=== PATIENT | male | born 1935 | race Caucasian/White ===

== ENCOUNTER 2018-01-07 12:39 | Inpatient (IN) | payer SELFPAY ==
[~2018-01-07] VITALS: Ht 175.3 cm; Wt 77.8 kg
--- NOTE | 2018-01-07 13:17 | RAD ---
CT head without intravenous contrast History: Acute neurological deficit, code stroke. Comparison: None. Technique: Axial images are obtained of the head from the skull base through the vertex without IV contrast. Exposure: One or more of the following individualized dose reduction techniques were utilized for this examination: 1. Automated exposure control 2. Adjustment of the mA and/or kV according to patient size 3. Use of iterative reconstruction technique Findings: The ventricles are appropriate in size, shape, and location for the patient's age. No obvious intracranial mass, mass-effect, midline shift, or hemorrhage is identified. Basilar cisterns are patent. Small old right posterior cerebellar infarction is seen. Small old bilateral thalamic lacunar infarctions are seen. Somewhat amorphous, small focus of low-attenuation involving the right subinsular region and right frontal white matter is seen, could represent subacute versus old white matter infarction. No obvious acute ischemic cortical infarction is identified. Moderate poorly defined white matter low-attenuation is seen, probably from chronic microvascular ischemic disease. Bone windows demonstrate no acute calvarial abnormality. The visualized paranasal sinuses appear clear. Impression: 1. Somewhat amorphous focus of low-attenuation is seen involving the right subinsular white matter and deep right frontal white matter, compatible with white matter infarctions, could be subacute versus old. 2. No obvious acute cortical infarction is identified. 3. Old bilateral basal ganglia lacunar infarctions. 4. Small old right posterior cerebellar infarction. 5. Moderate nonspecific white matter low-attenuation is seen, probably from chronic microvascular ischemic disease. Results were phoned to referring emergency department physician, Dr. Turcios, at 1313 hours. Electronically signed by: Donavan Vernon MD (01/07/2018 1:13 PM) [place] [id number]
--- NOTE | 2018-01-07 13:28 | EKG ---
[address] [address] Test Date: 2018-01-07 Test Time: 13:24:05 Pat Name: DELORES LICEA Department: Room: Gender: M On Site Property Manager: SHAE : 1935 Requested By: FAB SANTIAGO Order Number: [id number] Reading MD: Measurements Intervals [place] Rate: 61 P: 38 MD: 172 QRS: -20 QRSD: 96 T: 21 QT: 430 QTc: 434 Interpretive Statements SINUS RHYTHM LEFTWARD AXIS R-S TRANSITION ZONE IN V LEADS DISPLACED TO THE LEFT QRS(T) CONTOUR ABNORMALITY CONSIDER ANTEROSEPTAL MYOCARDIAL DAMAGE POSSIBLY ABNORMAL ECG RI6.01 No previous ECG available for comparison
[2018-01-07 13:30] LABS: BASO # 0.1 x10^3/uL (0.0-0.2); BASO % 1 % (0-3); EOS # 0.3 x10^3/uL (0.0-0.7); EOS % 3 % (0-3); HEMATOCRIT 39.5 % (39.0-53.0); HEMOGLOBIN 13.4 g/dL (13.0-17.5); LYMPH # 2.4 x10^3/uL (1.0-4.8); LYMPH % 20 % (24-48); MEAN CORPUSCULAR HEMOGLOBIN 30 pg (25-35); MEAN CORPUSCULAR HGB CONC 34 g/dL (31-37); MEAN CORPUSCULAR VOLUME 88 fL (79-100); MONO # 1.2 x10^3/uL (0.0-1.1); MONO % 10 % (0-9); NEUT # 7.8 x10^3uL (1.8-7.7); NEUT % 67 % (31-73); PLATELET COUNT 212 x10^3/uL (140-400); RED BLOOD COUNT 4.48 x10^6/uL (4.30-5.70); RED CELL DISTRIBUTION WIDTH 13.7 % (11.5-14.5); WHITE BLOOD COUNT 11.8 x10^3/uL (4.0-11.0)
--- NOTE | 2018-01-07 13:31 | RAD ---
EXAM: Chest, single view. HISTORY: Mental status changes. COMPARISON: None. FINDINGS: A frontal view the chest is obtained. There is lower lobe atelectasis. There is no consolidation, effusion or pneumothorax. There is cardiomegaly. IMPRESSION: Cardiomegaly and lower lobe atelectasis. Electronically signed by: Mae Salazar MD (01/07/2018 1:28 PM) [id number]
[2018-01-07 14:09] LABS: ALBUMIN 3.5 g/dL (3.4-5.0); ALBUMIN/GLOBULIN RATIO 1.1 (1.0-1.7); CALCIUM 9.1 mg/dL (8.5-10.1); CREATININE 1.3 mg/dL (0.7-1.3); GFR 53.1; TOTAL BILIRUBIN 0.5 mg/dL (0.2-1.0); TOTAL PROTEIN 6.8 g/dL (6.4-8.2)
--- NOTE | 2018-01-07 14:35 | PHYS DOC ---
Past History Past Medical History: CVA, High Cholesterol, Hypertension Past Surgical History: No Surgical History Alcohol Use: None Drug Use: None Adult General Chief Complaint Chief Complaint: NEURO SYMPTOMS/DEFICITS HPI HPI 82 year old male patient with history of intracranial bleeding one month ago without remaining neuro deficit brought in by his caregiver because of sudden onset of facial droop that started about 30 minutes prior to arrival to ER at 1210 without other symptoms. Patient denies headache, chest pain, shortness of breath, focal neuro deficit, nausea and vomiting. Patient currently taking baby aspirin. Review of Systems Review of Systems Constitutional: Denies fever or chills [] Eyes: Denies change in visual acuity, redness, or eye pain [] HENT: Denies nasal congestion or sore throat [] Respiratory: Denies cough or shortness of breath [] Cardiovascular: No additional information not addressed in HPI [] GI: Denies abdominal pain, nausea, vomiting, bloody stools or diarrhea [] : Denies dysuria or hematuria [] Musculoskeletal: Denies back pain or joint pain [] Integument: Denies rash or skin lesions [] Neurologic: Denies headache, reports focal weakness , denies sensory changes [] Endocrine: Denies polyuria or polydipsia [] All other systems were reviewed and found to be within normal limits, except as documented in this note. Current Medications Current Medications Current Medications Medications (Trade) Dose Ordered Sig/Renae Start Time Stop Time Status Last Admin Dose Admin Potassium Chloride (KCl Oral Soln) 40 meq 1X ONCE 01/07/18 14:15 01/07/18 14:16 UNV Physical Exam Physical Exam Constitutional: Well developed, well nourished, no acute distress, non-toxic appearance. [] HENT: Normocephalic, atraumatic, bilateral external ears normal, oropharynx moist, no oral exudates, nose normal. [] Eyes: PERRLA, EOMI, conjunctiva normal, no discharge. [] Neck: Normal range of motion, no tenderness, supple, no stridor. [] Cardiovascular:Heart rate regular rhythm, no murmur [] Lungs & Thorax: Bilateral breath sounds clear to auscultation [] Abdomen: Bowel sounds normal, soft, no tenderness, no masses, no pulsatile masses. [] Skin: Warm, dry, no erythema, no rash. [] Back: No tenderness, no CVA tenderness. [] Extremities: No tenderness, no cyanosis, no clubbing, ROM intact, no edema. [] Neurologic: Alert and oriented X 3, very mild left facial droop without change of smile, normal sensory function, no focal deficits noted. NIHSS-1[] Psychologic: Affect normal, judgement normal, mood normal. [] Current Patient Data Vital Signs Vital Signs Date Time Temp Pulse Resp B/P (MAP) Pulse Ox O2 Delivery O2 Flow Rate FiO2 01/07/18 12:40 98.3 67 16 95 Room Air Lab Results Laboratory Tests Test 01/07/18 13:10 01/07/18 13:14 01/07/18 13:41 White Blood Count 11.8 x10^3/uL (4.0-11.0) H Red Blood Count 4.48 x10^6/uL (4.30-5.70) Hemoglobin 13.4 g/dL (13.0-17.5) Hematocrit 39.5 % (39.0-53.0) Mean Corpuscular Volume 88 fL (79-100) Mean Corpuscular Hemoglobin 30 pg (25-35) Mean Corpuscular Hemoglobin Concent 34 g/dL (31-37) Red Cell Distribution Width 13.7 % (11.5-14.5) Platelet Count 212 x10^3/uL (140-400) Neutrophils (%) (Auto) 67 % (31-73) Lymphocytes (%) (Auto) 20 % (24-48) L Monocytes (%) (Auto) 10 % (0-9) H Eosinophils (%) (Auto) 3 % (0-3) Basophils (%) (Auto) 1 % (0-3) Neutrophils # (Auto) 7.8 x10^3uL (1.8-7.7) H Lymphocytes # (Auto) 2.4 x10^3/uL (1.0-4.8) Monocytes # (Auto) 1.2 x10^3/uL (0.0-1.1) H Eosinophils # (Auto) 0.3 x10^3/uL (0.0-0.7) Basophils # (Auto) 0.1 x10^3/uL (0.0-0.2) Prothrombin Time 10.3 SEC (9.4-11.4) Prothrombin Time INR 1.0 (0.9-1.1) Glucose (Fingerstick) 90 mg/dL (70-99) Sodium Level 139 mmol/L (136-145) Potassium Level 3.0 mmol/L (3.5-5.1) L Chloride Level 102 mmol/L (98-107) Carbon Dioxide Level 32 mmol/L (21-32) Anion Gap 5 (6-14) L Blood Urea Nitrogen 26 mg/dL (8-26) Creatinine 1.3 mg/dL (0.7-1.3) Estimated GFR (Cockcroft-Gault) 53.1 BUN/Creatinine Ratio 20 (6-20) Glucose Level 103 mg/dL (70-99) H Calcium Level 9.1 mg/dL (8.5-10.1) Total Bilirubin 0.5 mg/dL (0.2-1.0) Aspartate Amino Transferase (AST) 15 U/L (15-37) Alanine Aminotransferase (ALT) 21 U/L (16-63) Alkaline Phosphatase 124 U/L (46-116) H Troponin I Quantitative < 0.017 ng/mL (0-0.055) Total Protein 6.8 g/dL (6.4-8.2) Albumin 3.5 g/dL (3.4-5.0) Albumin/Globulin Ratio 1.1 (1.0-1.7) EKG EKG EKG interpreted by me. Patient 1324 showed normal sinus rhythm at rate of 61, left fourth axis, poor R-wave progress in anteroseptal leads, no acute ST and T- wave abnormalities[] Radiology/Procedures Radiology/Procedures [] [address] [address] IMAGING REPORT Signed PATIENT: DELORES LICEA ACCOUNT: [id number] : 1935 LOCATION: ER AGE: 82 SEX: M EXAM STATUS: REG ER ORD. PHYSICIAN: FAB SANTIAGO MD REASON: acute neurodeficit PROCEDURE: CHEST AP ONLY EXAM: Chest, single view. HISTORY: Mental status changes. COMPARISON: None. FINDINGS: A frontal view the chest is obtained. There is lower lobe atelectasis. There is no consolidation, effusion or pneumothorax. There is cardiomegaly. IMPRESSION: Cardiomegaly and lower lobe atelectasis. Electronically signed by: Mae Isaac MD (01/07/2018 1:28 PM) [facility] DICTATED AND SIGNED BY: MAE ISAAC MD DATE: 01/07/18 1957 CC: FAB SANTIAGO MD; PA SORIANO MD ~ [place] [id number] IMAGING REPORT Signed PATIENT: DELORES LICEA ACCOUNT: [id number] : 1935 LOCATION: ER AGE: 82 SEX: M EXAM STATUS: REG ER ORD. PHYSICIAN: FAB SANTIGAO MD REASON: acute neuro deficits PROCEDURE: CT CODE STROKE HEAD WO CT head without intravenous contrast History: Acute neurological deficit, code stroke. Comparison: None. Technique: Axial images are obtained of the head from the skull base through the vertex without IV contrast. Exposure: One or more of the following individualized dose reduction techniques were utilized for this examination: 1. Automated exposure control 2. Adjustment of the mA and/or kV according to patient size 3. Use of iterative reconstruction technique Findings: The ventricles are appropriate in size, shape, and location for the patient's age. No obvious intracranial mass, mass-effect, midline shift, or hemorrhage is identified. Basilar cisterns are patent. Small old right posterior cerebellar infarction is seen. Small old bilateral thalamic lacunar infarctions are seen. Somewhat amorphous, small focus of low-attenuation involving the right subinsular region and right frontal white matter is seen, could represent subacute versus old white matter infarction. No obvious acute ischemic cortical infarction is identified. Moderate poorly defined white matter low-attenuation is seen, probably from chronic microvascular ischemic disease. Bone windows demonstrate no acute calvarial abnormality. The visualized paranasal sinuses appear clear. Impression: 1. Somewhat amorphous focus of low-attenuation is seen involving the right subinsular white matter and deep right frontal white matter, compatible with white matter infarctions, could be subacute versus old. 2. No obvious acute cortical infarction is identified. 3. Old bilateral basal ganglia lacunar infarctions. 4. Small old right posterior cerebellar infarction. 5. Moderate nonspecific white matter low-attenuation is seen, probably from chronic microvascular ischemic disease. Results were phoned to referring emergency department physician, Dr. Santiago, at 1313 hours. Electronically signed by: Donavan Barksdale MD (01/07/2018 1:13 PM) [facility] DICTATED AND SIGNED BY: DONAVAN BARKSDALE MD DATE: 01/07/18 1306 CC: FAB SANTIAGO MD; PA SORIANO MD ~ Course & Med Decision Making Course & Med Decision Making Pertinent Labs and Imaging studies reviewed. (See chart for details) Evaluation of patient in ER showed 82-year-old patient with history of recent intracranial bleed brought in because of sudden onset of facial droop. Patient had NIHSS-1 was not a candidate for TPA because of history of recent intracranial bleeding and also very low and NIHSS. Patient had potassium of 3.0 and treated with oral potassium. Plan to admit patient for observation. Dr. Talamantes informed at 1450 and agreed with plan of care. Dragon Disclaimer Dragon Disclaimer This electronic medical record was generated, in whole or in part, using a voice recognition dictation system. Departure Departure: Impression: Primary Impression: Acute focal neurological deficit Additional Impression: Hypokalemia Disposition: ADMITTED INPATIENT (At 1430) Admitting Physician: Yelena Talamantes Condition: STABLE Referrals: PA SORIANO MD (PCP) Problem Qualifiers FAB SANTIAGO MD January 07, 2018 14:34
[2018-01-07 14:42] LABS: BACTERIA,URINE MOD /HPF (0-FEW); BILIRUBIN,URINE NEG (NEG); CLARITY,URINE HAZY; COLOR,URINE YELLOW; GLUCOSE,URINE NEG (NEG); NITRITE,URINE NEG (NEG); SQUAMOUS EPITHELIAL CELL,UR FEW /LPF; UROBILINOGEN,URINE 0.2 mg/dL (0.2 mg/dL)
[2018-01-07] MEDS ORDERED: POTASSIUM CHLORIDE 20 MEQ/15 ML ORAL LIQUID. PO ONE (14:45)
[2018-01-07] MEDS ORDERED: cefTRIAXone IV Push 1 GM VIAL. IVP ONE (16:00)
[2018-01-07 18:06] VITALS: BP 158/72
[2018-01-07] MEDS ORDERED: POTA10TA10 PO (18:21)
[2018-01-07] MEDS ORDERED: AMLO10TA4 PO (18:21)
[2018-01-07] MEDS ORDERED: ATOR10TA PO (18:21)
[2018-01-07] MEDS ORDERED: CARV12.5 PO (18:21)
[2018-01-07] MEDS ORDERED: MELA3TAB2 PO (18:21)
[2018-01-07] MEDS ORDERED: CHLO25TA PO (18:21)
[2018-01-07] MEDS ORDERED: ASPI-630 PO (18:21)
[2018-01-07] MEDS ORDERED: HYDR50TA6 PO (18:21)
--- NOTE | 2018-01-07 18:43 | HP ---
ADMIT DATE: 01/07/2018 HISTORY OF PRESENT ILLNESS: This is an 82-year-old male patient who was brought to the Emergency Room by his caregiver because of sudden onset of facial droop that started about 30 minutes prior to arrival to the Emergency Room without other symptoms. The patient denied any headache, chest pain, denied any dizziness, denied any tingling, numbness or focal deficit. Denied any vomiting. The patient is currently taking a baby aspirin. He was extensively evaluated in the Emergency Room and has had a CT scan of the head, which showed that there is somewhat amorphous focus of low attenuation is seen involving the right insular white matter and deep right frontal white matter compatible with white matter infarction, could be subacute versus old. There is no obvious acute cortical infarction identified. Old bilateral basal ganglia lacunar infarction and small old right posterior cerebellar infarction. He has also moderate nonspecific white matter low attenuation seen, probably from chronic microvascular ischemic disease. The patient was admitted for further evaluation by Dr. Astorga. PAST MEDICAL HISTORY: Significant for hypertension, hyperlipidemia. He also has apparently a recent hemorrhagic stroke for which he was seen initially at [facility] and eventually was sent to [facility] at the [place]. We do not have any further details about it and we probably have to get the medical records from these 2 hospitals. PAST SURGICAL HISTORY: Significant for right foot fracture, status post open reduction and internal fixation, bilateral cataract extraction. ALLERGIES: He has no known drug allergies. MEDICATIONS: We do not have the exact list of the medications, we will contact the Pharmacy to get all his medications. FAMILY HISTORY: Apparently is unremarkable. SOCIAL HISTORY: He apparently lives alone with caregiver keeping an eye on him. He has 3 or 4 daughters and 1 son, all live around. He does not smoke, drink alcohol or use any recreational drugs. PHYSICAL EXAMINATION: GENERAL: On arrival to the Emergency Room, he looked well and was clearly in no apparent respiratory distress, pale, but no jaundice, cyanosis, or thyromegaly. No jugular venous distension. No lower limb edema. VITAL SIGNS: His heart rate was 67, temperature was 98.3, respiratory rate was 16, and oxygen saturation was 95% on room air. HEAD, EYES, EARS, NOSE AND THROAT: Showed normocephalic, atraumatic. NECK: Supple. HEART: Showed normal first and second sounds. No gallop, rub or murmur. CHEST: Clear to auscultation. No crepitation or rhonchi. ABDOMEN: Distended, soft, nontender. No guarding or rigidity. No organomegaly. All hernial orifices are intact. Bowel sounds normal. NEUROLOGIC: He is very hard of hearing. Otherwise, all cranial nerves are intact except that he has mild facial upper motor neuron right-sided facial weakness. The strength to both upper and lower extremities is the same. He is able to ambulate without assistance or assistive devices. LABORATORY DATA: While in the Emergency Room, he had lab work done, which showed CBC with a white cell count of 11,800, hemoglobin 13.4, hematocrit 39.5, MCV 88 and platelet count of 212,000. His chemistry showed a serum sodium of 139, potassium 3, chloride 102, bicarbonate 32, anion gap of 5, BUN 26, creatinine 1.3, estimated GFR was 53 mL per minute. His glucose was 103, calcium was 9.1. Total bilirubin, AST, ALT, alkaline phosphatase were normal. His total protein was 6.8, albumin 3.5. His prothrombin time was 10.3, INR of 1. His urinalysis was essentially unremarkable. Urine was yellow, hazy with a pH of 8.5, specific gravity of 1.015. The urine was negative for nitrite. There was small leukocyte esterase, 1-2 RBCs, 5-10 WBCs, moderate amount of bacteria. IMAGING DATA: His chest x-ray showed cardiomegaly and lower lobe atelectasis and a CT scan showed somewhat amorphous focus of low attenuation is seen involving the right subinsular white matter and deep right frontal white matter compatible with white matter infarction that could be subacute versus old. He has no obvious acute cortical infarction identified. Old bilateral basal ganglia lacunar infarcts and small old right posterior cerebellar infarction, moderate nonspecific white matter low attenuation is seen, probably from chronic microvascular ischemic disease. ASSESSMENT AND PLAN: The patient will be admitted. We will arrange for him to have lipid profile and bilateral carotid Doppler ultrasound. We will consult Dr. Astorga and decide on further management accordingly. We will also correct his hypokalemia and if all is well, the patient can be discharged home. DELL ABARCA MD DR: ALEXI/violeta JOB#: [id number] / [id number]
[2018-01-07] MEDS ORDERED: TAMS0.4C97 PO (19:35)
[2018-01-07 19:42] VITALS: BP 133/79
[2018-01-07] MEDS ORDERED: HYDR100T24 PO (20:14)
[2018-01-07] MEDS ORDERED: MELATONIN 3 MG TABLET PO SCH (21:00)
[2018-01-07 22:08] VITALS: BP 118/61
[2018-01-08] MEDS ORDERED: hydroCHLOROthiazide 25 MG TABLET PO SCH (07:00)
[2018-01-08 07:06] LABS: CALCIUM 9.1 mg/dL (8.5-10.1); CREATININE 1.4 mg/dL (0.7-1.3); GFR 48.8; POTASSIUM 3.4 mmol/L (3.5-5.1)
[2018-01-08 07:51] VITALS: BP 172/85
[2018-01-08] MEDS ORDERED: CARVEDILOL 12.5 MG TABLET PO SCH (08:00)
--- NOTE | 2018-01-08 08:37 | CONS ---
DATE OF CONSULTATION: 01/07/2018 NEUROLOGICAL CONSULTATION REFERRING PHYSICIAN: Dr. Talamantes. HISTORY OF PRESENT ILLNESS: This is an 82-year-old male who was admitted through Emergency Room after he presented with a chief complaint of acute onset of left facial drooping began at approximately 30 minutes prior to admission to the Emergency Room. The patient stated he suffered from "hemorrhagic infarct" approximately a month ago and he was extensively worked up at [facility], but the medical record is not available at this time. The patient denies any new neurological complaints of headaches, visual disturbances, weakness, numbness, paresthesia, chest pain, shortness of breath or palpitation, dysarthria, dysphagia or dizziness. Initial nonenhanced head CT scan consistent with a possible subacute old right frontal lobe infarct in the deep white matter along with right insular white matter, old bilateral basal ganglia lacunar infarcts and small old right posterior cerebellar infarct. PAST MEDICAL HISTORY: Significant for hemorrhagic infarct as described above and had extensive stroke workup at [facility], history of hypertension, hyperlipidemia, benign prostate hypertrophy. PAST SURGICAL HISTORY: Significant for bilateral cataract extraction, status post right foot fracture, required surgery. SOCIAL HISTORY: The patient is single. He lives alone with a caregiver. He has 5 childrens. He denies smoking, alcohol drinking or any illicit drug use. CURRENT HOME MEDICATIONS: Amlodipine 10 mg daily, aspirin 81 mg daily, Lipitor 10 mg daily, chlorthalidone 25 mg daily, hydralazine 100 mg daily. Melatonin 3 mg nightly, tamsulosin 0.4 mg daily. ALLERGIES: No known drug allergies. REVIEW OF SYSTEMS: A 10-point review of system was performed as mentioned above in history of present illness. PHYSICAL EXAMINATION: GENERAL: Well-developed, well-nourished white male, not in acute distress. He weighs 171 pounds. VITAL SIGNS: Blood pressure 158/72, respiratory rate 20, pulse 71 regular, temperature 98.1, oxygen saturation 95% on room air. HEENT: Normocephalic, atraumatic, otherwise unremarkable. NECK: Supple. Negative for carotid bruit, lymphadenopathy, thyromegaly or JVD. LUNGS: Clear to A and P. CARDIOVASCULAR: Regular rate rhythm. Normal S1, S2. There is no S3, S4 or murmur. ABDOMEN: Soft. Bowel sounds positive. EXTREMITIES: Negative for cyanosis, clubbing or pitting edema. NEUROLOGIC: 1. Mental status: The patient is alert and oriented x 3. Speech is fluent. There is no language dysfunction. Memory, judgment, and abstract thinking are normal. The patient denies hallucination or delusion. 2. Cranial nerves: Visual acevedo are full. The pupils are reactive to light and accommodation. The extraocular movements are intact. There is no nystagmus. There is a mild left facial asymmetry. There is no facial sensory deficit. Hearing is diminished bilaterally. The palate is elevated symmetrically. Sternocleidomastoid muscles are powerful bilaterally. The patient shrugs his shoulders symmetrically, protrudes his tongue in the midline without fasciculation or atrophy. 3. Motor: No focal muscle bulk was seen. The tone is normal. The strength is 5/5 throughout. 4. Sensory: Normal pinprick, light touch, vibratory and position senses. 5. Deep tendon reflexes are symmetric and active without pathologic responses. 6. Gait and coordination are normal. DIAGNOSTIC DATA: Initial nonenhanced head CT scan as mentioned above in history of present illness consistent with a possible subacute right frontal infarct along with a small old right cerebellar infarct and white matter small vessel ischemic disease. Chest x-ray revealed cardiomegaly with lower lobe atelectasis. LABORATORY DATA: CBC revealed white blood cells of 11.8, hemoglobin 13.4, hematocrit 39.5, platelet count 212,000. Chemistry revealed sodium of 139, potassium 3, chloride 102, CO2 32. BUN 26, creatinine 1.3, glucose 103, calcium 9.1. Troponin level is normal. Liver enzymes are normal, but alkaline phosphatase is elevated. Urinalysis shows small urinary leukocyte esterase with white blood cells of 5-10 and moderate bacteria. IMPRESSION: 1. Possible new left facial asymmetry with abnormal head CT scan as described above. Subacute infarct would not entirely ruled out. 2. Status post small hemorrhagic infarct. 3. Multiple medical problems include hypertension, hyperlipidemia, bilateral hearing loss, benign prostate hypertrophy, and hypokalemia. RECOMMENDATIONS: 1. The patient has been scheduled to have bilateral carotid Doppler study. 2. Request of recent medical record from [facility]. 3. Correct the underlying hypokalemia. 4. Continue with current care initiated by Dr. Talamantes. M Juan LUGO MD DR: Lissy JOB#: [id number] / [id number]
[2018-01-08] MEDS ORDERED: ASPIRIN 81 MG TAB.CHEW PO SCH (09:00)
[2018-01-08] MEDS ORDERED: amLODIPine BESYLATE 10 MG TABLET PO SCH (09:00)
[2018-01-08] MEDS ORDERED: POTASSIUM CHLORIDE 20 MEQ TABLET.ER. PO SCH (09:00)
[2018-01-08] MEDS ORDERED: TAMSULOSIN 0.4 MG CAP.ER.24H. PO SCH (09:00)
[2018-01-08] MEDS ORDERED: CHLORTHALIDONE 25 MG TABLET PO SCH (09:00)
[2018-01-08] MEDS ORDERED: DOCU100C28 PO (10:03)
[2018-01-08] MEDS ORDERED: SENN1TAB7 PO (10:03)
[2018-01-08] MEDS ORDERED: MAGN2400 PO (10:03)
[2018-01-08] MEDS ORDERED: POLY17PO5 PO (10:03)
[2018-01-08 11:05] VITALS: BP 127/75
--- NOTE | 2018-01-08 12:00 | PN ---
DATE: 01/08/2018 SUBJECTIVE: The patient denies any new medical or neurological complaints. He has had resting tremor of the right hand, which usually aggravated by tiredness throughout the day. He denies headaches, visual disturbances, nausea, vomiting, chest pain, shortness of breath or palpitation, dysarthria, dysphagia, weakness or paresthesia. OBJECTIVE: GENERAL: Well-developed, well-nourished male, not in acute distress. VITAL SIGNS: Blood pressure 172/85, respiratory rate 18, pulse is 58, temperature is 97.7 and oxygen saturation 95% on room air. HEENT: Normocephalic, atraumatic, otherwise unremarkable. NECK: Supple. Negative for carotid bruit or lymphadenopathy, JVD or thyromegaly. LUNGS: Clear to A and P. CARDIOVASCULAR: Regular rate and rhythm, normal S1, S2. There is no S3, S4 or murmur. ABDOMEN: Soft. Bowel sounds positive. EXTREMITIES: Negative for cyanosis, clubbing or pitting edema. NEUROLOGICAL EXAM: Mental Status: The patient is alert and oriented x 3. Speech is fluent. There is no language dysfunction. Memory, judgment, and abstract thinking are normal. The patient denies hallucination or delusion. Cranial nerves are grossly intact except for bilateral hearing loss. There is no obvious facial asymmetry bilaterally. Motor examination: No focal muscle bulk was seen. The strength was 5/5 throughout, probably slight rigidity in the right lower extremity. Intermittent resting tremor of the right hand was also noted. Sensory examination: Normal pinprick, light touch, vibratory and position senses. Deep tendon reflexes are symmetric and active without pathology responses. Gait and coordination are normal. LABORATORY DATA: Chemistry revealed sodium 142, potassium 3.4, chloride 104, CO2 of 31, BUN 30, creatinine 1.4, glucose 116, calcium 9.1. IMPRESSION: 1. Recent history of small hemorrhagic infarct-resolved. 2. Abnormal head CT scan consistent with subacute/chronic multiple infarcts as described above along with small vessel ischemic changes and of the white matter. 3. Persistent hypertension. The patient had renal angiogram, which shows narrowing of the blood vessel and he has been scheduled for possible stent placement in the renal system at [facility]. 4. 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 The patient has had family history of Parkinson's-his sister. 5. Hyperlipidemia and mild hypokalemia with renal insufficiency. RECOMMENDATIONS: 1. Continue with current management initiated by Dr. Talamantes. 2. The patient will be followed at [facility] for renal stent placement. 3. Continue with aspirin. 4. Follow up in [facility] for parkinsonian symptoms. M Juan LUGO MD DR: ORLY/violeta JOB#: [id number] / [id number]
--- NOTE | 2018-01-08 13:53 | RAD ---
Exam : Carotid Duplex with Grayscale Ultrasound and Spectral and Color Doppler Analysis 01/08/2018 1:47 PM Clinical Indications: Acute onset facial droop earlier today, straight prior stroke. Comparison study: None available. PQRS Compliance Statement - Stenosis calculations for CT, MR and conventional angiography are based upon measurement of the distal ICA diameter in accordance with the NASCET methodology. Stenosis calculations for carotid ultrasound studies are derived from validated velocity criteria which are known to correlate with the NASCET methodology. Findings: The common, internal and external carotid arteries were examined by grayscale, color and spectral Doppler ultrasound. Mild atherosclerotic calcification is seen in the right carotid bulb. No high-grade visual narrowing is identified on color Doppler imaging. Flow in the vertebral arteries is antegrade. The following are the velocities and ratios in the carotid arteries on both sides: RIGHT ICA PV: 93cm/sec RIGHT CCA PV: 74cm/sec RIGHT ICA ED: 26cm/sec RIGHT IC/CCPV: Less than 2 RIGHT VERTEBRAL: antegrade flow LEFT ICA PV: 69cm/sec LEFT CCA PV: 83 cm/sec LEFT ICA ED: 16cm/sec LEFT IC/CCPV: Less than 2 LEFT VERTEBRAL: antegrade flow <50% ICA Stenosis: PSV < 125cm/s (EDV < 40cm/s; SVR < 2.0) 50-69% ICA Stenosis: PSV < 125-229cm/s (EDV 40-99cm/s; SVR 2.0-3.9) >70% ICA Stenosis: PSV > 230cm/s (EDV >100cm/s; SVR >4.0) Impression: Mild changes of atherosclerotic vascular disease, most prominent in the right carotid bulb, with less than 50% stenosis of the bilateral internal carotid arteries by ultrasound criterion Electronically signed by: Kade Franco MD (01/08/2018 1:50 PM) [id number]
--- NOTE | 2018-01-08 14:24 | DS ---
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 His lab works were unremarkable except for hypokalemia that was attributed to allergy to potassium salt. He was advised by his doctor not to take any potassium and to supplement with food that is high in potassium. He was seen by Dr. Astorga and bilateral Doppler ultrasound was done, the results of which are still pending. The patient was very agitated and basically wanted to go home, so we have discharged him. He already has an appointment to see his neurologist at [facility]. He should continue on all medications. Unfortunately, the computers were down, so I told his daughter to continue with whatever medication he is on and to keep the appointment with his neurologist at [facility]. DELL ABARCA MD DR: ALEXI/violeta JOB#: [id number] / [id number]
[2018-01-08] MEDS ORDERED: ATORVASTATIN CALCIUM 10 MG TABLET. PO SCH (21:00)
== END 2018-01-08 14:45 | disposition home or self-care (01) | DRG 92 ==
LOC: ER 12:39 → 1 SOUTH 14:30
PROVIDERS: ADMIT Internal Medicine; ATTEND Internal Medicine
DX: R29.810 Facial weakness (principal); N39.0 Urinary tract infection, site not specified; G20 Parkinson's disease; E87.6 Hypokalemia; E78.00 Pure hypercholesterolemia, unspecified; I10 Essential (primary) hypertension; E78.5 Hyperlipidemia, unspecified; H91.93 Unspecified hearing loss, bilateral; N28.9 Disorder of kidney and ureter, unspecified; N40.0 Benign prostatic hyperplasia without lower urinary tract symptoms; T50.3X5A Adverse effect of electrolytic, caloric and water-balance agents, initial encounter; Z79.82 Long term (current) use of aspirin; Z79.899 Other long term (current) drug therapy; Z82.0 Family history of epilepsy and other diseases of the nervous system; Z86.73 Personal history of transient ischemic attack (TIA), and cerebral infarction without residual deficits; Z98.42 Cataract extraction status, left eye; Z98.41 Cataract extraction status, right eye; Y92.89 Other specified places as the place of occurrence of the external cause
CPT/HCPCS: 36415; 70450; 71045; 80048; 80053; 80061; 81001; 82947; 84484; 85025; 85610; 93005; 93880; 96374; J0696; 99285-25